=== PATIENT | male | born 1990 | race Caucasian/White ===

== ENCOUNTER 2017-11-20 06:16 | Emergency (ER) | payer MEDICAID ==
[~2017-11-20] VITALS: Ht 188 cm; Wt 111.1 kg
[2017-11-20 06:20] VITALS: BP 160/85
--- NOTE | 2017-11-20 06:36 | NUR ---
27Y/M PRESENTS TO ER C/O RT FOOT PAIN X3 DAYS. PT STATES HE STEPPED ON ROCK ON TUESDAY AND WAS SEEN BY [employer] BODY AND GIVEN RX BUT IS HAVING INCREASING PAIN AND "NOT FEELING RIGHT". PT STATES HE WAS DRINKING LAST NIGHT AND USING "SOME COCAINE". SKIN IS WARM DRY, INTACT, +CMS. PT STATES HE HAS RECURRING CELLULITIS TO RT LEG. PT [id number], SITTING IN BED, CALM, COOPERATIVE, WILL CONTINUE TO MONITOR.
[2017-11-20 06:57] VITALS: BP 160/85
--- NOTE | 2017-11-20 06:58 | NUR ---
Patient discharged with v/s stable. Written and verbal after care instructions given and explained. Patient verbalized understanding. Ambulatory with steady gait. All questions addressed prior to discharge. Advised to follow up with PMD.
== END 2017-11-20 06:58 | disposition home or self-care (01) ==
LOC: MED 06:16
DX: S90.811A Abrasion, right foot, initial encounter (principal); M79.671 Pain in right foot; F14.10 Cocaine abuse, uncomplicated; R03.0 Elevated blood-pressure reading, without diagnosis of hypertension; Z98.890 Other specified postprocedural states; W22.8XXA Striking against or struck by other objects, initial encounter; Y93.89 Activity, other specified; Y92.89 Other specified places as the place of occurrence of the external cause; Y99.8 Other external cause status
CPT/HCPCS: 73630; 99284